=== PATIENT | male | born 1945 | race Caucasian/White ===

== ENCOUNTER 2019-06-26 15:59 | Observation (INO) ==
[2019-06-26] MEDS ORDERED: Isovue-370 500 ML BOTTLE IVP ONE (16:13)
[2019-06-26 16:39] LABS: Hematocrit 40.8 % (37.5-50.1); Hemoglobin 13.5 g/dL (12.9-16.9); Mean Corpuscular HGB Conc 33.1 g/dL (31.6-35.5); Mean Corpuscular Hemoglobin 30.7 pg (28.0-33.3); Mean Corpuscular Volume 92.7 fL (83.0-100.0); Platelet Count 221 K/mcL (140-400); Red Cell Distribution Width 13.2 % (11.5-14.5); White Blood Count 6.8 K/mcL (4.3-11.1)
[2019-06-26 16:46] LABS: Prothrombin Time 11.3 Seconds (9.4-12.1)
[2019-06-26 16:49] LABS: Activated Partial Thrombo Time 36.1 Seconds (26.0-36.0)
[2019-06-26 17:00] LABS: BUN/Creatinine Ratio 13 (6-26); Blood Urea Nitrogen 15 mg/dL (8-23); Calcium 9.3 mg/dL (8.6-10.3); Carbon Dioxide 27 mEq/L (23-29); Chloride 102 mEq/L (98-107); Creatine Kinase 56 Units/L (30-223); Glucose 147 mg/dL (70-105); Osmolality,Calculated 286 (280-300); Potassium 3.8 mEq/L (3.5-5.1); Sodium 136 mEq/L (136-145); Troponin I < 0.03 ng/mL (< 0.04); eGFR For African Americans > 60 (> 60); eGFR For Non-African Americans > 60 (> 60)
[2019-06-26 17:46] LABS: Bilirubin,Urine Negative (Negative); Blood,Urine Negative (Negative); Clarity,Urine Clear (Clear); Color,Urine Yellow (Yellow); Glucose,Urine (UA) Normal (Normal); Ketones,Urine Negative (Negative); Leukocyte Esterase,Urine Negative (Negative); Nitrite,Urine Negative (Negative); Protein,Urine Negative (Neg-Trace); Specific Gravity,Urine > 1.030 (1.010-1.025); Urobilinogen,Urine Normal (Normal)
[2019-06-26] MEDS ORDERED: Naloxone 0.4 MG/ML INJ IVP PRN (21:28)
[2019-06-26] MEDS ORDERED: Nitroglycerin 0.4 MG TAB.SUBL SL PRN (21:30)
[2019-06-26] MEDS ORDERED: Dextrose Gel 15 GM/37.5 ML TUBE PO PRN ×2 (21:31)
[2019-06-26] MEDS ORDERED: *HR* Dextrose 50 % in Water (Syg) 50 ML SYRINGE IVP PRN (21:31)
[2019-06-26] MEDS ORDERED: D5% in Water 1,000 ML IVC PRN (21:31)
[2019-06-26] MEDS: Insulin LISPRO 300 UNITS/3 ML VIAL SQ SCH (21:54)
[2019-06-26] MEDS: *HR* Heparin 5,000 UNIT/ML VIAL SQ SCH (22:31)
[2019-06-26] MEDS: Ipratropium/Albuterol Neb 3 ML IH SCH (23:49)
[2019-06-27 02:16] LABS: Hematocrit 40.1 % (37.5-50.1); Hemoglobin 13.3 g/dL (12.9-16.9); Mean Corpuscular HGB Conc 33.2 g/dL (31.6-35.5); Mean Corpuscular Hemoglobin 30.6 pg (28.0-33.3); Mean Corpuscular Volume 92.4 fL (83.0-100.0); Mean Platelet Volume 10.3 fL (9.4-12.4); Platelet Count 212 K/mcL (140-400); Red Blood Count 4.34 M/mcL (4.19-5.50); Red Cell Distribution Width 13.2 % (11.5-14.5); White Blood Count 7.1 K/mcL (4.3-11.1)
[2019-06-27 02:27] LABS: BUN/Creatinine Ratio 11 (6-26); Blood Urea Nitrogen 14 mg/dL (8-23); Calcium 9.3 mg/dL (8.6-10.3); Carbon Dioxide 29 mEq/L (23-29); Chloride 102 mEq/L (98-107); Glucose 160 mg/dL (70-105); Osmolality,Calculated 286 (280-300); Potassium 3.6 mEq/L (3.5-5.1); Sodium 136 mEq/L (136-145); eGFR For African Americans > 60 (> 60); eGFR For Non-African Americans 58 (> 60)
[2019-06-27] MEDS: Ipratropium/Albuterol Neb 3 ML IH SCH ×4 (03:54→21:17)
[2019-06-27] MEDS: *HR* Heparin 5,000 UNIT/ML VIAL SQ SCH ×2 (05:33→16:54)
[2019-06-27] MEDS: Aspirin 81 MG TAB.CHEW PO SCH (09:36)
[2019-06-27] MEDS: Insulin LISPRO 300 UNITS/3 ML VIAL SQ SCH ×4 (09:36→21:10)
[2019-06-27] MEDS ORDERED: Benzonatate 100 MG CAPSULE PO PRN (22:42)
[2019-06-28 02:32] LABS: Chol/HDL Ratio 2.5 (0-4.9)
[2019-06-28] MEDS: Ipratropium/Albuterol Neb 3 ML IH SCH ×2 (04:06→10:19)
[2019-06-28] MEDS: *HR* Heparin 5,000 UNIT/ML VIAL SQ SCH (06:02)
[2019-06-28 07:34] VITALS: BP 181/69
[2019-06-28] MEDS: Insulin LISPRO 300 UNITS/3 ML VIAL SQ SCH (08:09)
[2019-06-28] MEDS: Aspirin 81 MG TAB.CHEW PO SCH (08:09)
[2019-06-28] MEDS ORDERED: Multivit/Ca/Min/Fe/FA 1 TAB TABLET PO SCH (09:00)
== END 2019-06-28 10:53 | disposition home or self-care (01) ==
LOC: EMEROOARM 15:59 → 3BNU 15:59
PROVIDERS: ADMIT Internal Medicine; ATTEND Internal Medicine